=== PATIENT | male | born 1980 | race Caucasian/White ===

== ENCOUNTER 2016-07-16 03:38 | Emergency (ER) | payer BC ==
[2016-07-16] MEDS ORDERED: DEXAMETHASONE SOD PHOS INJ 10 MG/1 ML VIAL IM ONE (04:55)
--- NOTE | 2016-07-16 04:59 | ER Document Report ---
HPI - HPI Patient complains to provider of: neck pain, throat pain Pain Level: 2 Context: Patient is a 36-year-old male that comes emergency department for chief complaint of pain in his neck in the front, symptoms started today. He denies sore throat, fever, but he states he feels some pain with swallowing. He denies shortness of breath, chest pain, headache, history of the same. He denies any swelling of the neck or face. He denies any injury. - DERM Skin Color: Normal, [place] Past Medical History - General Information source: Patient - Social History Smoking Status: Never Smoker Frequency of alcohol use: None Drug Abuse: None Lives with: Family Family History: Reviewed & Not Pertinent - Medical History Medical History: Negative Renal/ Medical History: Denies: Hx Peritoneal Dialysis Surgical Hx: Negative - Immunizations Immunizations up to date: Yes Hx Diphtheria, Pertussis, Tetanus Vaccination: Yes Vertical Provider Document - CONSTITUTIONAL General Appearance: WD/WN, No Apparent Distress - INFECTION CONTROL TRAVEL OUTSIDE OF THE [place] IN LAST 30 DAYS: No - HEENT HEENT: Atraumatic, Normal ENT Exam, Normocephalic - NECK Neck: Other - There is mild anterior cervical adenopathy bilaterally, worse on the left - RESPIRATORY O2 Sat by Pulse Oximetry: 99 - CARDIOVASCULAR Cardiovascular: Regular Rate, Regular Rhythm - GI/ABDOMEN Gastrointestinal: Abdomen Soft, Abdomen Non-Tender - BACK Back: Normal Inspection - MUSCULOSKELETAL/EXTREMETIES Musculoskeletal/Extremeties: MAEW, FROM, Non-Tender - NEURO Level of Consciousness: Awake, Alert, Appropriate Motor/Sensory: No Motor Deficit, No Sensory Deficit Course - Re-evaluation Re-evalutation: Patient with mild tenderness of the anterior cervical chain, unremarkable oral exam and pharynx exam, unremarkable thyroid and neck exam otherwise, no swelling , erythema, or abnormal heat to the neck or face. Patient is a [employer] [employer] , treating the dexamethasone but gave precautions in regards to this. Discussed ENT follow-up for symptoms continue, discussed return precautions, patient states satisfaction and agreement. - Vital Signs Vital signs: Temp Pulse Resp BP Pulse Ox 97.6 F 79 14 134/74 H 99 07/16/16 03:46 07/16/16 03:46 07/16/16 03:46 07/16/16 03:46 07/16/16 03:46 Discharge - Discharge Clinical Impression: Neck pain Condition: Stable Disposition: HOME, SELF-CARE Additional Instructions: Examination is consistent with somewhat swollen and tender anterior cervical lymph nodes, this is nonspecific. Do not sing for at least 3 days. If symptoms continue please follow-up with ENT for additional evaluation. Return to the emergency department for any concerning worsening symptoms including fever, shortness of breath, swelling, etc. Referrals: NOVA HENDRIX MD [Primary Care Provider] - Follow up as needed
[2016-07-16 05:42] VITALS: BP 120/65
== END 2016-07-16 05:40 | disposition home or self-care (01) ==
LOC: ER 03:38
DX: M54.2 Cervicalgia (principal); J02.9 Acute pharyngitis, unspecified
CPT/HCPCS: 99282; 96372; J1100